=== PATIENT | female | born 1950 | race African-American/Black ===

== ENCOUNTER 2020-12-31 05:46 | Observation (INO) ==
[2020-12-31] MEDS ORDERED: VANCOMYCIN INJ 1,000 MG in SODIUM CHLORIDE 0.9% 250 ML IV ONE (06:00)
[2020-12-31] MEDS ORDERED: ceFAZolin 1,000 MG in SYRINGE 1 EACH IV ONE (06:00)
[2020-12-31] MEDS ORDERED: KETAMINE 500 MG/10 ML VIAL ONE (06:32)
[2020-12-31] MEDS ORDERED: fentaNYL 100 MCG/2 ML VIAL ONE (06:32)
[2020-12-31] MEDS ORDERED: DEXMEDETOMIDINE 200 MCG/2 ML VIAL ONE (06:32)
[2020-12-31] MEDS ORDERED: LIDOCAINE 2% 5 ML VIAL ONE (06:32)
[2020-12-31] MEDS ORDERED: BUPIVACAINE SPINAL 0.75% 2 ML AMP SPINAL ONE (06:38)
[2020-12-31] MEDS ORDERED: BUPIVACAINE MPF 0.25% 30 ML VIAL ONE (06:38)
[2020-12-31] MEDS ORDERED: ONDANSETRON 4 MG/2 ML VIAL IV PRN ×2 (07:00→10:01)
[2020-12-31] MEDS ORDERED: BISACODYL 10 MG SUPP RECTAL PRN (07:00)
[2020-12-31] MEDS ORDERED: MAGNESIUM HYDROXIDE SUSP 30 ML UDCUP PO PRN (07:00)
[2020-12-31] MEDS ORDERED: PROMETHAZINE 25 MG/1 ML VIAL IM PRN (07:00)
[2020-12-31] MEDS ORDERED: LACTULOSE 20 GM/30 ML UDCUP PO PRN (07:00)
[2020-12-31] MEDS ORDERED: DOCUSATE SODIUM 100 MG CAPSULE PO PRN (07:04)
[2020-12-31] MEDS ORDERED: tiZANidine 4 MG TABLET PO PRN (07:04)
[2020-12-31] MEDS ORDERED: SEVOFLURANE 1 UNIT/15 MINUTE INH ONE ×4 (08:09→09:15)
[2020-12-31] MEDS ORDERED: TRANEXAMIC ACID 1,000 MG/10 ML VIAL ONE ×2 (08:09→08:11)
[2020-12-31] MEDS ORDERED: SODIUM CHLORIDE 0.9% 100 ML IV ONE (08:09)
[2020-12-31] MEDS ORDERED: ROCURONIUM 50 MG/5 ML VIAL IV ONE (08:09)
[2020-12-31] MEDS ORDERED: LACTATED RINGERS 1,000 ML IV ONE (08:09)
[2020-12-31] MEDS ORDERED: ACETAMINOPHEN 1,000 MG/100 ML VIAL IV ONE (08:14)
[2020-12-31] MEDS: LACTATED RINGERS 1,000 ML IV SCH ×2 (08:35→10:40)
[2020-12-31] MEDS ORDERED: HYDROmorphone 2 MG/1 ML VIAL ONE ×2 (09:03→09:56)
[2020-12-31] MEDS: HYDROmorphone 2 MG/1 ML VIAL IV PRN ×3 (09:57→10:15)
[2020-12-31] MEDS: carvediloL 25 MG TABLET PO SCH ×2 (10:55→20:53)
[2020-12-31] MEDS: diphenhydrAMINE CAP 25 MG CAPSULE PO PRN (13:01)
[2020-12-31] MEDS: MORPHINE 4 MG/1 ML VIAL IV PRN ×3 (13:01→21:02)
[2020-12-31] MEDS: ceFAZolin 2,000 MG in PREMIX 1 EACH IV SCH ×2 (13:16→21:03)
[2020-12-31] MEDS ORDERED: KETOROLAC 30 MG/1 ML VIAL IV ONE (13:49)
[2020-12-31] MEDS: FONDAPARINUX 2.5 MG/0.5 ML SYRINGE SUBCUT SCH (17:13)
[2020-12-31] MEDS: POTASSIUM CHLORIDE 10 MEQ TABLET PO SCH (20:51)
[2020-12-31] MEDS: MAGNESIUM CHLORIDE 64 MG TABLET PO SCH (20:51)
[2020-12-31] MEDS: LOSARTAN 50 MG TABLET PO SCH (20:51)
[2020-12-31] MEDS: ASPIRIN EC 81 MG TABLET PO SCH (20:51)
[2020-12-31] MEDS: sulfaSALAzine 500 MG TABLET PO SCH (20:51)
[2020-12-31] MEDS: VITAMIN E 400 UNIT CAPSULE PO SCH (20:52)
[2020-12-31] MEDS: CHOLECALCIFEROL 1,000 UNIT TABLET PO SCH (20:52)
[2020-12-31] MEDS: CETIRIZINE 10 MG TABLET PO SCH (20:52)
[2020-12-31] MEDS: ASCORBIC ACID 500 MG TABLET PO SCH (20:53)
[2020-12-31] MEDS: DOCUSATE SODIUM 100 MG CAPSULE PO SCH (20:53)
[2020-12-31] MEDS ORDERED: GABAPENTIN 600 MG TABLET PO SCH (21:00)
[2020-12-31] MEDS ORDERED: ZALEPLON 5 MG CAPSULE PO SCH (21:00)
[2020-12-31] MEDS: KETOROLAC 15 MG/1 ML VIAL IV PRN (23:38)
[2021-01-01] MEDS: MORPHINE 4 MG/1 ML VIAL IV PRN ×7 (01:53→23:01)
[2021-01-01] MEDS: TEMAZEPAM 7.5 MG CAPSULE PO PRN (02:08)
[2021-01-01] MEDS: LACTATED RINGERS 1,000 ML IV SCH ×2 (04:26→07:03)
[2021-01-01 05:55] LABS: Basophils % 0.4 % (0.0-0.8); Eosinophils % 0.5 % (0.00-10.9); Hematocrit 31.9 VOL% (35.7-47.0); Hemoglobin 10.6 GM/DL (12.0-16.0); Immature Granulocytes % 0.4 %; Immature Granulocytes Absolute 0.03 #; Lymphocytes % 23.2 % (21.3-54.2); Mean Corpuscular HGB Conc 33.2 GM/DL (32-36); Mean Corpuscular Volume 96.1 FL (87-102); Mean Platelet Volume 10.6 FL (9.6-12.0); Neutrophils % 63.5 % (38.7-73.9); Platelet Count 319 T/CUMM (130-400); Red Blood Count 3.32 MC/CUMM (3.8-5.5); Red Cell Distribution Width 14.1 % (9.3-17.3); White Blood Count 8.5 T/CUMM (4-12)
[2021-01-01] MEDS: LEVOTHYROXINE 150 MCG TABLET PO SCH (05:58)
[2021-01-01 06:12] LABS: Calcium 8.2 MG/DL (8.5-10.1); Osmolality,Calculated 271.8 MOS/KG (273-304); Potassium 3.2 MMOL/L (3.5-5.1)
[2021-01-01] MEDS: KETOROLAC 15 MG/1 ML VIAL IV PRN ×2 (07:38→13:34)
[2021-01-01] MEDS ORDERED: GABAPENTIN 300 MG CAPSULE PO SCH (09:00)
[2021-01-01] MEDS: carvediloL 25 MG TABLET PO SCH ×2 (09:22→21:11)
[2021-01-01] MEDS: sulfaSALAzine 500 MG TABLET PO SCH ×2 (09:23→21:10)
[2021-01-01] MEDS: DOCUSATE SODIUM 100 MG CAPSULE PO SCH ×2 (09:23→21:11)
[2021-01-01] MEDS: GABAPENTIN 300 MG CAPSULE PO SCH ×3 (09:23→21:11)
[2021-01-01] MEDS: POTASSIUM CHLORIDE 10 MEQ TABLET PO SCH ×2 (09:23→21:10)
[2021-01-01] MEDS: diphenhydrAMINE CAP 25 MG CAPSULE PO PRN (15:36)
[2021-01-01] MEDS: FONDAPARINUX 2.5 MG/0.5 ML SYRINGE SUBCUT SCH (17:33)
[2021-01-01] MEDS: POTASSIUM CHLORIDE 20 MEQ TABLET PO PRN ×2 (18:25→21:09)
[2021-01-01] MEDS ORDERED: ZOLPIDEM 5 MG TABLET PO PRN (19:40)
[2021-01-01] MEDS ORDERED: ZOLPIDEM 5 MG PO PRN (21:00)
[2021-01-01] MEDS: ASPIRIN EC 81 MG TABLET PO SCH (21:09)
[2021-01-01] MEDS: LOSARTAN 50 MG TABLET PO SCH (21:09)
[2021-01-01] MEDS: VITAMIN E 400 UNIT CAPSULE PO SCH (21:10)
[2021-01-01] MEDS: MAGNESIUM CHLORIDE 64 MG TABLET PO SCH (21:10)
[2021-01-01] MEDS: CETIRIZINE 10 MG TABLET PO SCH (21:10)
[2021-01-01] MEDS: ASCORBIC ACID 500 MG TABLET PO SCH (21:10)
[2021-01-01] MEDS: CHOLECALCIFEROL 1,000 UNIT TABLET PO SCH (21:10)
[2021-01-02] MEDS: MORPHINE 4 MG/1 ML VIAL IV PRN ×6 (00:38→21:50)
[2021-01-02] MEDS: POTASSIUM CHLORIDE 20 MEQ TABLET PO PRN ×2 (00:39→00:40)
[2021-01-02] MEDS: LEVOTHYROXINE 150 MCG TABLET PO SCH (06:06)
[2021-01-02 07:02] LABS: Basophils % 0.5 % (0.0-0.8); Eosinophils # 0.3 10*3/uL (0.0-0.87); Eosinophils % 4.1 % (0.00-10.9); Hematocrit 34.1 VOL% (35.7-47.0); Hemoglobin 11.2 GM/DL (12.0-16.0); Immature Granulocytes % 0.3 %; Immature Granulocytes Absolute 0.02 #; Lymphocytes # 1.6 10*3/uL (1.4-4.0); Lymphocytes % 20.4 % (21.3-54.2); Mean Corpuscular HGB Conc 32.8 GM/DL (32-36); Mean Corpuscular Volume 97.7 FL (87-102); Mean Platelet Volume 10.7 FL (9.6-12.0); Monocytes % 14.3 % (1.7-12.7); Neutrophils % 60.4 % (38.7-73.9); Platelet Count 334 T/CUMM (130-400); Red Blood Count 3.49 MC/CUMM (3.8-5.5); Red Cell Distribution Width 14.4 % (9.3-17.3)
[2021-01-02 07:21] LABS: Bilirubin,Total 0.5 MG/DL (0.2-1.0); Calcium 8.2 MG/DL (8.5-10.1); Osmolality,Calculated 276.4 MOS/KG (273-304); Potassium 4.1 MMOL/L (3.5-5.1); Total Protein 7.2 G/DL (6.4-8.2)
[2021-01-02] MEDS: GABAPENTIN 300 MG CAPSULE PO SCH ×3 (09:47→21:51)
[2021-01-02] MEDS: DOCUSATE SODIUM 100 MG CAPSULE PO SCH ×2 (09:47→21:51)
[2021-01-02] MEDS: sulfaSALAzine 500 MG TABLET PO SCH ×2 (09:47→21:51)
[2021-01-02] MEDS: carvediloL 25 MG TABLET PO SCH ×2 (09:47→22:22)
[2021-01-02] MEDS: POTASSIUM CHLORIDE 10 MEQ TABLET PO SCH ×2 (09:47→21:50)
[2021-01-02] MEDS: FONDAPARINUX 2.5 MG/0.5 ML SYRINGE SUBCUT SCH (17:52)
[2021-01-02] MEDS ORDERED: BISACODYL 5 MG TABLET PO ONE ×2 (18:18→21:00)
[2021-01-02] MEDS: TEMAZEPAM 7.5 MG CAPSULE PO PRN ×2 (21:50→22:46)
[2021-01-02] MEDS: MAGNESIUM CHLORIDE 64 MG TABLET PO SCH (21:51)
[2021-01-02] MEDS: CETIRIZINE 10 MG TABLET PO SCH (21:51)
[2021-01-02] MEDS: CHOLECALCIFEROL 1,000 UNIT TABLET PO SCH (21:51)
[2021-01-02] MEDS: ASCORBIC ACID 500 MG TABLET PO SCH (21:52)
[2021-01-02] MEDS: ASPIRIN EC 81 MG TABLET PO SCH (21:52)
[2021-01-02] MEDS: VITAMIN E 400 UNIT CAPSULE PO SCH (22:05)
[2021-01-02] MEDS: LOSARTAN 50 MG TABLET PO SCH (22:22)
[2021-01-03] MEDS: MORPHINE 4 MG/1 ML VIAL IV PRN ×3 (03:55→14:29)
[2021-01-03] MEDS: LEVOTHYROXINE 150 MCG TABLET PO SCH (06:04)
[2021-01-03] MEDS: sulfaSALAzine 500 MG TABLET PO SCH (08:41)
[2021-01-03] MEDS: DOCUSATE SODIUM 100 MG CAPSULE PO SCH (08:41)
[2021-01-03] MEDS: carvediloL 25 MG TABLET PO SCH (08:41)
[2021-01-03] MEDS: diphenhydrAMINE CAP 25 MG CAPSULE PO PRN (08:42)
[2021-01-03] MEDS: POTASSIUM CHLORIDE 10 MEQ TABLET PO SCH (08:42)
[2021-01-03] MEDS: GABAPENTIN 300 MG CAPSULE PO SCH ×2 (08:42→14:35)
[2021-01-03 16:09] VITALS: BP 108/66
== END 2021-01-03 17:42 ==
LOC: N.OR 05:46 → N.SDSINP 05:48 → INTOOBSV 07:00 → N.SDSINP 07:00 → N.3E 10:40
PROVIDERS: ADMIT Orthopaedic Surgery; ATTEND Orthopaedic Surgery

== ENCOUNTER 2021-12-29 10:38 | Observation (INO) ==
[2021-12-29] MEDS ORDERED: ONDANSETRON 4 MG/2 ML VIAL IV STA (10:55)
[2021-12-29] MEDS ORDERED: HYDROmorphone 1 MG/1 ML SYRINGE IV STA (10:55)
[2021-12-29] MEDS ORDERED: PIPERACILLIN/TAZOBACTAM 3,375 MG in SODIUM CHLORIDE 0.9% 100 ML IV STA (10:55)
[2021-12-29] MEDS ORDERED: SODIUM CHLORIDE 0.9% 500 ML IV STA (10:55)
[2021-12-29 11:53] LABS: Basophils % 0.3 % (0.0-0.8); Hematocrit 42.5 VOL% (35.7-47.0); Hemoglobin 14.1 GM/DL (12.0-16.0); Immature Granulocytes % 0.4 %; Immature Granulocytes Absolute 0.04 #; Lymphocytes # 1.2 10*3/uL (1.4-4.0); Lymphocytes % 13.5 % (21.3-54.2); Mean Corpuscular HGB Conc 33.2 GM/DL (32-36); Mean Corpuscular Volume 100.7 FL (87-102); Mean Platelet Volume 10.4 FL (9.6-12.0); Monocytes % 15.1 % (1.7-12.7); Neutrophils % 70.7 % (38.7-73.9); Platelet Count 278 T/CUMM (130-400); Red Blood Count 4.22 MC/CUMM (3.8-5.5); Red Cell Distribution Width 13.4 % (9.3-17.3)
[2021-12-29 11:55] LABS: Bilirubin,Urine Negative (Negative); Blood, Urine Negative (Negative); Glucose,Urine (UA) Negative (Negative); Ketones,Urine Negative (Negative); Nitrite,Urine Negative (Negative); Protein,Urine Negative (Negative); RBC,Urine 1 /HPF (0-4); Urine Appearance Clear (Clear); Urine Color Yellow (Yellow); Urine Specific Gravity < 1.005 (1.001-1.035); Urine Urobilinogen 0.2 eU/dL (<2.0); Urine pH 5.5 (4.5-8.0)
[2021-12-29 12:08] LABS: Bilirubin,Total 0.6 MG/DL (0.20-1.00); Calcium 8.9 MG/DL (8.5-10.1); Osmolality,Calculated 279.3 MOS/KG (273-304); Potassium 3.9 MMOL/L (3.5-5.1)
[2021-12-29] MEDS ORDERED: ONDANSETRON 4 MG/2 ML VIAL IV PRN (14:32)
[2021-12-29] MEDS ORDERED: ACETAMINOPHEN 325 MG TABLET PO PRN (14:32)
[2021-12-29] MEDS: HYDROmorphone 1 MG/1 ML SYRINGE IV PRN ×2 (14:40→20:52)
[2021-12-29] MEDS ORDERED: PIPERACILLIN/TAZOBACTAM 3,375 MG in SODIUM CHLORIDE 0.9% 100 ML IV SCH (15:00)
[2021-12-29] MEDS: SODIUM CHLORIDE 0.45% 1,000 ML IV SCH ×2 (15:44→23:00)
[2021-12-29] MEDS ORDERED: cloNIDine 0.1 MG TABLET PO ONE (17:04)
[2021-12-29] MEDS: PIPERACILLIN/TAZOBACTAM 3,375 MG in SODIUM CHLORIDE 0.9% 100 ML IV SCH (18:37)
[2021-12-29] MEDS ORDERED: DOCUSATE SODIUM 100 MG CAPSULE PO PRN (20:47)
[2021-12-29] MEDS ORDERED: tiZANidine 4 MG TABLET PO PRN (20:47)
[2021-12-29] MEDS ORDERED: oxyCODONE/ACETAMINOPHEN 5-325 MG TABLET PO PRN (20:47)
[2021-12-29] MEDS ORDERED: TEMAZEPAM 15 MG CAPSULE PO PRN (20:58)
[2021-12-29] MEDS ORDERED: ZALEPLON 5 MG CAPSULE PO PRN (21:00)
[2021-12-29] MEDS: KETOROLAC 15 MG/1 ML VIAL IV SCH (22:17)
[2021-12-29] MEDS: metroNIDAZOLE INJ 500 MG/100 ML PREMIX IV SCH (22:20)
[2021-12-29] MEDS: GABAPENTIN 300 MG CAPSULE PO SCH (22:24)
[2021-12-29] MEDS: MAGNESIUM CHLORIDE 64 MG TABLET PO SCH (22:24)
[2021-12-29] MEDS: LOSARTAN 50 MG TABLET PO SCH (22:25)
[2021-12-29] MEDS: carvediloL 25 MG TABLET PO SCH (22:25)
[2021-12-29] MEDS: ASPIRIN EC 81 MG TABLET PO SCH (22:25)
[2021-12-29] MEDS: POTASSIUM CHLORIDE 10 MEQ TABLET PO SCH (22:26)
[2021-12-29] MEDS: cloNIDine 0.1 MG TABLET PO SCH (22:26)
[2021-12-29] MEDS: CETIRIZINE 10 MG TABLET PO SCH (22:26)
[2021-12-30] MEDS: PIPERACILLIN/TAZOBACTAM 3,375 MG in SODIUM CHLORIDE 0.9% 100 ML IV SCH (01:49)
[2021-12-30] MEDS: KETOROLAC 15 MG/1 ML VIAL IV SCH ×5 (03:17→22:07)
[2021-12-30 05:38] LABS: Basophils % 0.3 % (0.0-0.8); Hematocrit 36.9 VOL% (35.7-47.0); Hemoglobin 12.2 GM/DL (12.0-16.0); Immature Granulocytes % 0.3 %; Immature Granulocytes Absolute 0.03 #; Lymphocytes # 2.1 10*3/uL (1.4-4.0); Lymphocytes % 23.5 % (21.3-54.2); Mean Corpuscular HGB Conc 33.1 GM/DL (32-36); Mean Corpuscular Volume 100.5 FL (87-102); Mean Platelet Volume 11.1 FL (9.6-12.0); Monocytes % 13.4 % (1.7-12.7); Neutrophils % 62.5 % (38.7-73.9); Platelet Count 257 T/CUMM (130-400); Red Blood Count 3.67 MC/CUMM (3.8-5.5); Red Cell Distribution Width 13.4 % (9.3-17.3); White Blood Count 8.7 T/CUMM (4-12)
[2021-12-30 06:11] LABS: Calcium 7.9 MG/DL (8.5-10.1); Osmolality,Calculated 280.1 MOS/KG (273-304); Potassium 3.4 MMOL/L (3.5-5.1)
[2021-12-30] MEDS: metroNIDAZOLE INJ 500 MG/100 ML PREMIX IV SCH ×3 (06:15→22:10)
[2021-12-30] MEDS: LEVOTHYROXINE 150 MCG TABLET PO SCH (07:42)
[2021-12-30] MEDS ORDERED: cefTRIAXone 1,000 MG in SODIUM CHLORIDE 0.9% 100 ML IV SCH (08:00)
[2021-12-30] MEDS: cloNIDine 0.1 MG TABLET PO SCH ×3 (08:42→22:05)
[2021-12-30] MEDS: POTASSIUM CHLORIDE 10 MEQ TABLET PO SCH ×3 (08:42→22:06)
[2021-12-30] MEDS: carvediloL 25 MG TABLET PO SCH ×3 (08:42→22:06)
[2021-12-30] MEDS: GABAPENTIN 300 MG CAPSULE PO SCH ×4 (08:42→22:06)
[2021-12-30] MEDS ORDERED: ENOXAPARIN 40 MG/0.4 ML SYRINGE SUBCUT SCH (09:00)
[2021-12-30] MEDS ORDERED: LIDOCAINE 5% PATCH TRANSDERM SCH (09:00)
[2021-12-30] MEDS ORDERED: PANTOPRAZOLE 40 MG TABLET PO SCH (09:00)
[2021-12-30] MEDS: SODIUM CHLORIDE 0.45% 1,000 ML IV SCH ×2 (12:07→22:10)
[2021-12-30] MEDS: MAGNESIUM CHLORIDE 64 MG TABLET PO SCH ×2 (20:26→22:06)
[2021-12-30] MEDS: CETIRIZINE 10 MG TABLET PO SCH ×2 (20:27→22:09)
[2021-12-30] MEDS: LOSARTAN 50 MG TABLET PO SCH ×2 (20:27→22:06)
[2021-12-30] MEDS: ASPIRIN EC 81 MG TABLET PO SCH ×2 (20:27→22:04)
[2021-12-31] MEDS: KETOROLAC 15 MG/1 ML VIAL IV SCH (02:55)
[2021-12-31] MEDS: metroNIDAZOLE INJ 500 MG/100 ML PREMIX IV SCH (05:25)
[2021-12-31] MEDS: LEVOTHYROXINE 150 MCG TABLET PO SCH (06:05)
[2021-12-31 07:32] VITALS: BP 124/83
== END 2021-12-31 10:24 | disposition home or self-care (01) ==
LOC: N.ED 10:38 → N.EDINP 10:38 → N.5E 16:38
PROVIDERS: ADMIT Internal Medicine; ATTEND Internal Medicine